=== PATIENT | female | born 1970 | race Caucasian/White ===

== ENCOUNTER → 2016-09-30 | Outpatient (CLI) | payer BC ==
[~2016-09-30] MED LIST: BUPR150T; ENLP10T PO; HYDR50TA3 PO; IBP600T1; WRF5T PO
--- NOTE | 2016-09-30 13:36 | Diagnostic Imaging Report ---
Bilateral screening mammogram. The current study was also evaluated with a Computer Aided Detection (CAD) system. INDICATION: Screening. No current complaints stated on the questionnaire. COMPARISON: 08/12/2015. FINDINGS: The breasts are composed of heterogeneously dense parenchyma which may decrease mammographic sensitivity. Punctate calcifications are seen. Allowing for technique and positional differences, no suspicious change is seen. IMPRESSION: Dense breasts with no definite change. ACR BI-RADS Category 2: Benign findings. Result letter will be mailed to the patient. Note: At least 10% of breast cancer is not imaged by mammography. Dictated by: Dictated on workstation # [id number]
== END ==
LOC: RAD 12:39
PROVIDERS: ATTEND Nurse Practitioner
DX: Z12.31 Encounter for screening mammogram for malignant neoplasm of breast (principal)

== ENCOUNTER → 2017-10-05 | Outpatient (CLI) | payer BC ==
--- NOTE | 2017-10-05 18:49 | Diagnostic Imaging Report ---
INDICATION: Routine screening. COMPARISON: Comparison is made with prior study from 09/30/2016 and 08/12/2015. The current study was also evaluated with a Computer Aided Detection (CAD) system. FINDINGS: Both breasts are heterogeneously dense, limiting sensitivity of mammography. The parenchymal pattern is stable. No discrete mass or malignant appearing microcalcifications are seen. The axillae are unremarkable. IMPRESSION: No mammographic features suspicious for malignancy are identified. ACR BI-RADS Category 1: Negative. Result letter will be mailed to the patient. Note: At least 10% of breast cancer is not imaged by mammography. Dictated by: Dictated on workstation # [id number]
== END ==
LOC: RAD 07:24
PROVIDERS: ATTEND Nurse Practitioner
DX: Z12.31 Encounter for screening mammogram for malignant neoplasm of breast (principal)
CPT/HCPCS: 77067

== ENCOUNTER → 2018-10-09 | Outpatient (CLI) | payer BC ==
--- NOTE | 2018-10-09 19:43 | Diagnostic Imaging Report ---
EXAMINATION: Digital mammogram bilateral screening with 3D tomosynthesis. The current study was also evaluated with a Computer Aided Detection (CAD) system. INDICATION: Screening. This study was compared to the prior exams of 10/05/2017, 09/30/2016, and 08/12/2015. At this time, there are no current complaints. FINDINGS: The fibroglandular tissue in both breasts is heterogeneously dense. This does limit the sensitivity of this exam. Overall, there does not appear to have been any significant change when compared to the prior study. No primary or secondary sign of malignancy is noted. 3D tomographic images fail to show any sign of malignancy. IMPRESSION: There is no radiographic evidence for malignancy. ACR BI-RADS Category 1: Negative. Result letter will be mailed to the patient. Note: At least 10% of breast cancer is not imaged by mammography. Dictated by: Dictated on workstation # [id number]
== END ==
LOC: RAD 07:21
PROVIDERS: ATTEND Nurse Practitioner
DX: Z12.31 Encounter for screening mammogram for malignant neoplasm of breast (principal)
CPT/HCPCS: 77067

== ENCOUNTER → 2019-10-10 | Outpatient (CLI) | payer BC ==
--- NOTE | 2019-10-10 11:49 | Diagnostic Imaging Report ---
INDICATION: Routine screening. Comparison is made with prior mammogram from 10/09/2018 and 10/05/2017. 2-D and 3-D bilateral screening mammography was performed. The current study was also evaluated with a Computer Aided Detection (CAD) system. 3-D tomosynthesis was also performed and reviewed. FINDINGS: Both breasts remain heterogeneously dense, limiting the sensitivity of mammography. There are benign calcifications scattered in both breasts. Slightly nodular densities in the lower right breast on MLO view appear to be more prominent on today's study. These appear to be laterally located on the tomographic images. Additional views are recommended. Left breast is unremarkable. Axillae are unremarkable. IMPRESSION: Right breast nodular densities, lower and likely outer mid depth. Additional views and ultrasound are recommended for further evaluation. ACR BI-RADS Category 0: Incomplete. (Needs additional imaging evaluation). Result letter will be mailed to the patient. Note: At least 10% of breast cancer is not imaged by mammography. Dictated by: Dictated on workstation # [id number]
== END ==
LOC: RAD 07:01
PROVIDERS: ATTEND Obstetrics & Gynecology
DX: Z12.31 Encounter for screening mammogram for malignant neoplasm of breast (principal); R92.1 Mammographic calcification found on diagnostic imaging of breast
CPT/HCPCS: 77067

== ENCOUNTER → 2019-10-17 | Outpatient (CLI) | payer BC ==
--- NOTE | 2019-10-17 11:35 | Diagnostic Imaging Report ---
INDICATION: Right breast density. Patient presents for additional views. Correlation is made with recent screening study from 10/10/2019. Unilateral right 2-D and 3-D diagnostic mammography was performed including spot MLO view as well as conventional 90 degree lateral view. Additional views fail to demonstrate a discrete mass. The area of density noted on screening study may represent superimposed tissue. Even so, sonographic interrogation of the lower and slightly outer right breast is recommended. IMPRESSION: BI-RADS 0 Additional views fail to demonstrate a discrete mass. Ultrasound of the lower and outer right breast approximately 5-6 cm from the nipple is recommended and will be performed today. ACR BI-RADS Category 0: Incomplete. (Needs additional imaging evaluation). Result letter will be mailed to the patient. Note: At least 10% of breast cancer is not imaged by mammography. Dictated by: Dictated on workstation # [id number]
--- NOTE | 2019-10-17 13:30 | Diagnostic Imaging Report ---
INDICATION: Right breast density. Patient presents for additional views. Correlation is made with diagnostic study earlier same day and screening study from 10/10/2019. Interrogation of the lower outer right breast was performed. No sonographic abnormality is detected. No solid or cystic mass is detected. IMPRESSION: BI-RADS Category 1 No sonographic abnormality is identified. The patient may return to routine annual screening mammography. Dictated by: Dictated on workstation # [id number]
== END ==
LOC: RAD 09:33
PROVIDERS: ATTEND Obstetrics & Gynecology
DX: R92.8 Other abnormal and inconclusive findings on diagnostic imaging of breast (principal)

== ENCOUNTER → 2020-12-10 | Outpatient (CLI) | payer BC ==
--- NOTE | 2020-12-10 14:49 | Diagnostic Imaging Report ---
INDICATION: Routine screening. COMPARISON: 10/10/2019 and 10/09/2018. TECHNIQUE: 2D and 3D bilateral screening mammography was performed with CAD. FINDINGS: Both breasts are heterogeneously dense, limiting the sensitivity of mammography. There are benign calcifications in both breasts. No dominant mass or malignant appearing microcalcifications are seen. The axillae are unremarkable. IMPRESSION: No mammographic features suspicious for malignancy are identified. ACR BI-RADS Category 2: Benign findings. Result letter will be mailed to the patient. Note: At least 10% of breast cancer is not imaged by mammography. Dictated by: Dictated on workstation # [id number]
== END ==
LOC: RAD 07:45
PROVIDERS: ATTEND Obstetrics & Gynecology
DX: Z12.31 Encounter for screening mammogram for malignant neoplasm of breast (principal)
CPT/HCPCS: 77063; 77067

== ENCOUNTER → 2021-11-05 | Outpatient (CLI) | payer BC ==
--- NOTE | 2021-11-05 12:28 | Diagnostic Imaging Report ---
INDICATION: Right shoulder pain, trauma 3 months ago. FINDINGS: AP, oblique, and transscapular views of the right shoulder were obtained. No fracture or acute bony abnormality is seen. The glenohumeral joint and AC joint are unremarkable. IMPRESSION: Negative right shoulder. Dictated by: Dictated on workstation # [id number]
== END ==
LOC: RAD 11:12
PROVIDERS: ATTEND Internal Medicine
DX: M25.511 Pain in right shoulder (principal); Z87.81 Personal history of (healed) traumatic fracture
CPT/HCPCS: 73030

== ENCOUNTER → 2021-11-11 | Outpatient (CLI) | payer BC | LOC: ORTHO 08:20 | PROVIDERS: ATTEND Orthopaedic Surgery | DX: M75.101 Unspecified rotator cuff tear or rupture of right shoulder, not specified as traumatic (principal) | CPT/HCPCS: 99203 ==

== ENCOUNTER → 2021-11-22 | Outpatient (CLI) | payer BC ==
--- NOTE | 2021-11-22 09:53 | Diagnostic Imaging Report ---
EXAMINATION: Magnetic resonance imaging of the right shoulder without contrast. DATE: November 22, 2021. COMPARISON: Right shoulder radiographs November 05, 2021. HISTORY: 51-year-old female, right shoulder pain. Injury in July 2021. TECHNIQUE: Magnetic Resonance Imaging sequences were performed of the shoulder without contrast. FINDINGS: ROTATOR CUFF, LIGAMENTS, TENDONS, AND MUSCLES: The supraspinatus, infraspinatus, teres minor, and subscapularis tendons and muscles are intact. There is normal rotator cuff muscle bulk and signal. LONG HEAD OF BICEPS: The biceps labral attachment and long head of the biceps tendon are intact. The long head of the biceps tendon is normally positioned within the bicipital groove. GLENOHUMERAL JOINT: The humeral head is well positioned relative to the glenoid. The labrum is grossly intact. There is no identified paralabral cyst. The articular cartilage is grossly intact. There is no joint effusion. ACROMIOCLAVICULAR JOINT: The acromioclavicular joint is normally aligned. The coracoclavicular and coracoacromial ligaments are intact. There are no prominent acromioclavicular degenerative changes. BONE: There is no os acromiale. There is edema in the distal clavicle with lack of edema in the adjacent acromion. There is no identified fracture line. The additional bone marrow signal is unremarkable. BURSAE AND SOFT TISSUES: There is soft tissue edema adjacent to the acromioclavicular joint. Additional bursal and soft tissue assessment is unremarkable. IMPRESSION: 1. Prominent edema in the distal clavicle with lack of edema in the adjacent acromion. This is most likely stress related. There is no current osteolysis of bone or fracture. 2. Intact rotator cuff and proximal long head of biceps tendon. 3. Grossly intact labrum and unremarkable additional glenohumeral joint assessment. Dictated by: Dictated on workstation # [id number]
== END ==
LOC: RAD 08:00
PROVIDERS: ATTEND Orthopaedic Surgery
DX: M75.101 Unspecified rotator cuff tear or rupture of right shoulder, not specified as traumatic (principal)
CPT/HCPCS: 73221

== ENCOUNTER → 2021-12-07 | Outpatient (CLI) | payer BC | LOC: ORTHO 08:46 | PROVIDERS: ATTEND Orthopaedic Surgery | DX: M25.519 Pain in unspecified shoulder (principal) | CPT/HCPCS: 20610; G0463 ==

== ENCOUNTER → 2022-01-24 | Outpatient (CLI) | payer BC ==
--- NOTE | 2022-01-24 12:37 | Diagnostic Imaging Report ---
INDICATION: Routine screening. COMPARISON: 12/10/2020 and 10/10/2019. TECHNIQUE: 2D and 3D bilateral screening mammography was performed with CAD. FINDINGS: Both breasts are heterogeneously dense, limiting the sensitivity of mammography. There are benign calcifications in both breasts. No mass or malignant-appearing microcalcifications are seen. The axillae are unremarkable. IMPRESSION: No mammographic features suspicious for malignancy are identified. ACR BI-RADS Category 2: Benign findings. Result letter will be mailed to the patient. Note: At least 10% of breast cancer is not imaged by mammography. Dictated by: Dictated on workstation # [id number]
== END ==
LOC: RAD 08:15
PROVIDERS: ATTEND Surgery
DX: Z12.31 Encounter for screening mammogram for malignant neoplasm of breast (principal)
CPT/HCPCS: 77063; 77067

== ENCOUNTER → 2022-06-09 | Outpatient (CLI) | payer BC | LOC: ORTHO 09:30 | PROVIDERS: ATTEND Orthopaedic Surgery | DX: M25.511 Pain in right shoulder (principal) | CPT/HCPCS: 20610 ==

== ENCOUNTER → 2022-09-27 | Outpatient (CLI) | payer BC ==
[~2022-09-27] VITALS: Ht 158 cm; Wt 72.7 kg
[~2022-09-27] MED LIST changes: +DULO60CA7 PO; +NITR-65 PO
== END | disposition home or self-care (01) ==
LOC: PREOP 05:22
PROVIDERS: ATTEND Surgery
DX: Z01.818 Encounter for other preprocedural examination (principal)

== ENCOUNTER 2022-10-04 07:24 | Day surgery (SDC) | payer BC ==
[~2022-10-04] VITALS: Ht 157.5 cm; Wt 72.7 kg
[2022-10-04] MEDS ORDERED: LACTATED RINGERS 1,000 ML IV STA (07:33)
[2022-10-04 07:45] VITALS: BP 138/95
[2022-10-04] MEDS ORDERED: PROPOFOL INJECTION 50 ML IV ONE (08:22)
[2022-10-04] MEDS ORDERED: MIDAZOLAM 2 MG/2 ML (VERSED) VIAL ONE (08:22)
--- NOTE | 2022-10-04 09:01 | Discharge Inst-Simple/Standard ---
Discharge Inst-Standard Patient Instructions/Follow Up Plan of Care/Instructions/FU: Follow up screening colonoscopy in 10 years Activity as Tolerated: Yes Discharge Diet: Regular Diet KHADIJAH VILLARREAL DO Oct 04, 2022 09:01
[2022-10-04 09:04] VITALS: BP 97/59
[2022-10-04 09:05] VITALS: BP 106/66
[2022-10-04 09:40] VITALS: BP 142/100
--- NOTE | 2022-10-04 10:12 | Anesthesia-General Post-Op ---
MAC Patient Condition Mental Status/LOC: Same as Preop Cardiovascular: Satisfactory Nausea/Vomiting: Absent Respiratory: Satisfactory Pain: Controlled Complications: Absent Post Op Complications Complications None Follow Up Care/Instructions Patient Instructions None needed. Anesthesiology Discharge Order Discharge Order Patient is doing well, no complaints, stable vital signs, no apparent adverse anesthesia problems. No complications reported per nursing. GODWIN PCAHECO CRNA Oct 04, 2022 10:12
--- NOTE | 2022-10-04 15:22 | OPERATIVE REPORT ---
DATE OF SERVICE: 10/04/2022 PREOPERATIVE DIAGNOSIS: Screening colonoscopy. POSTOPERATIVE DIAGNOSIS: Normal colon. PROCEDURE: Colonoscopy. SURGEON: Khadijah Armstrong DO. ANESTHESIA: Per [facility]. ESTIMATED BLOOD LOSS: None. COMPLICATIONS: None. INDICATIONS: The patient is a 52-year-old female, needing screening colonoscopy. She understands the risks and benefits of the procedure and wishes to proceed. Consent was signed on chart. DESCRIPTION OF PROCEDURE: The patient was taken to endoscopy suite, placed in left lateral recumbent position. Timeout was performed. Scope was inserted and the digital rectal exam was performed. No palpable polyps, masses or ulcerations. Scope was inserted in the rectum, advanced all the way to the cecum with minimal difficulty. Prep was adequate. Scope was slowly retracted back. No polyps, masses or ulcerations in the cecum, ascending, transverse, descending and sigmoid colon. Once in the rectum, the scope was retroflexed noting no other pathology. Scope was returned to its normal position and slowly withdrawn until completely removed. The patient tolerated the procedure well, with no complications, taken to recovery room in stable condition. RECOMMENDATIONS: The patient will need repeat colonoscopy in 10 years unless family history of colon cancer or personal history of polyps, which would then be 5 years. Any issues before that be seen at that time. Job ID: [id number] DocumentID: [id number] Dictated Date: 10/04/2022 09:01:55 Steel Turner Date: 10/04/2022 15:20:00 Dictated By: KHADIJAH ARMSTRONG DO
== END 2022-10-04 09:45 | disposition home or self-care (01) ==
LOC: ENDO 07:24
PROVIDERS: ATTEND Surgery
DX: Z12.11 Encounter for screening for malignant neoplasm of colon (principal)

== ENCOUNTER → 2022-10-12 | Outpatient (CLI) | payer BC | LOC: ORTHO 09:30 | PROVIDERS: ATTEND Orthopaedic Surgery | DX: M25.511 Pain in right shoulder (principal); I10 Essential (primary) hypertension; E66.9 Obesity, unspecified | CPT/HCPCS: 99213 ==

== ENCOUNTER → 2023-05-01 | Outpatient (CLI) | payer BC ==
--- NOTE | 2023-05-01 11:39 | Diagnostic Imaging Report ---
Indication: Routine screening. Comparison is made with prior mammogram from 01/24/2022 and 12/10/2020. 2-D and 3-D bilateral screening mammography was performed with CAD. The current study was also evaluated with a Computer Aided Detection (CAD) system. Both breasts are heterogeneously dense, limiting the sensitivity of mammography. The parenchymal pattern is stable. There are scattered benign calcifications in both breasts. No mass or malignant-appearing microcalcifications are seen. Axillae are unremarkable. IMPRESSION: BI-RADS Category 2 No mammographic features suspicious for malignancy are identified. ACR BI-RADS Category 2: Benign findings. Result letter will be mailed to the patient. Note: At least 10% of breast cancer is not imaged by mammography. Dictated by: Dictated on workstation # [id number]
== END ==
LOC: RAD 08:30
PROVIDERS: ATTEND Internal Medicine
DX: Z12.31 Encounter for screening mammogram for malignant neoplasm of breast (principal)
CPT/HCPCS: 77063; 77067